=== PATIENT | male | born 1990 | race Caucasian/White ===

== ENCOUNTER 2017-10-15 15:23 | Emergency (ER) | payer OTHER ==
--- NOTE | 2017-10-15 15:30 | PDOC ---
Rapid Medical Evaluation Medical Evaluation: 10/15/17 15:28 The patient presents with a chief complaint of: Thinks he sprained his R ankle at work. Taking advil. Slightly swollen. Hurts to walk. Slipped and twisted ankle when going down stairs. Denies loc, head truama I have performed a brief in-person evaluation of this patient; Pertinent physical exam findings: TTP of the Lateral malleolus. PMS of RLE intact. I have ordered the following: R ankle x-ray The patient will proceed to the ED for further evaluation. Discharge Disposition - Diagnosis Ankle sprain - Discharge Dispostion Disposition: HOME Condition at time of disposition: Good - Referrals Referrals: Abad Gallo MD [Staff Physician] - - Patient Instructions Additional Instructions: follow with the orthopedist for follow up within 7-10 days elevate and apply ice every 2hrs for 20 minutes while awake for the next 2 days take motrin 600mg every 6hrs for pain as needed use the air cast splint while awake remove to sleep and bathe - Post Discharge Activity Work/School Note: Back to Work
[2017-10-15 15:31] VITALS: BP 130/90; PULSE 90; TEMP 98.6; BMI 39.1
--- NOTE | 2017-10-15 16:05 | PDOC ---
History of Present Illness - General Chief Complaint: Injury Stated Complaint: RT ANKLE PAIN Time Seen by Provider: 10/15/17 15:42 History Source: Patient Exam Limitations: No Limitations - History of Present Illness Initial Comments: 10/15/17 15:57 c/o twisted right ankle today . Past History - Past Medical History Allergies/Adverse Reactions: Allergies Allergy/AdvReac Type Severity Reaction Status Date / Time No Known Allergies Allergy Verified 10/15/17 15:31 COPD: No Other medical history: denies - Suicide/Smoking/Psychosocial Hx Smoking History: Never smoked Number of Cigarettes Smoked Daily: 5 Information on smoking cessation initiated: Yes 'Breaking Loose' booklet given: 10/15/17 Hx Alcohol Use: No Drug/Substance Use Hx: No Substance Use Type: None *Physical Exam - Vital Signs Last Vital Signs Temp Pulse Resp BP Pulse Ox 98.6 F 90 19 130/90 100 10/15/17 15:29 10/15/17 15:29 10/15/17 15:29 10/15/17 15:29 10/15/17 15:29 - Physical Exam General Appearance: Yes: Nourished, Appropriately Dressed HEENT: positive: EOMI, LAMINE Neck: positive: Supple Respiratory/Chest: positive: Lungs Clear, Normal Breath Sounds Musculoskeletal: positive: Normal Inspection Extremity: positive: Normal Capillary Refill, Swelling (right lateral ankle with swelling, no bony tenderness, nv intact ) Integumentary: positive: Normal Color, Dry, Warm Neurologic: positive: Fully Oriented, Alert, Normal Mood/Affect, Normal Response , Motor Strength 5/5 Procedures - Splinting Pre-Made Type: aircast Medical Decision Making - Medical Decision Making 10/15/17 16:06 cc: right ankle sprain 2 days ago twisted it after stepping on a piece of food at work pt has been walking on the ankle no history or ankle injury in the past xray done is negative for acute fracture pt refused crutches air cast placed and dc inst given pt understands to follow up with ortho in 7-10 days *DC/Admit/Observation/Transfer Diagnosis at time of Disposition: Ankle sprain Qualifiers: Encounter type: initial encounter Involved ligament of ankle: unspecified ligament Laterality: right Qualified Code(s): S93.401A - Sprain of unspecified ligament of right ankle, initial encounter - Discharge Dispostion Disposition: HOME Condition at time of disposition: Good - Referrals Referrals: Abad Gallo MD [Staff Physician] - - Patient Instructions Additional Instructions: follow with the orthopedist for follow up within 7-10 days elevate and apply ice every 2hrs for 20 minutes while awake for the next 2 days take motrin 600mg every 6hrs for pain as needed use the air cast splint while awake remove to sleep and bathe - Post Discharge Activity Forms/Work/School Notes: Back to Work
== END 2017-10-15 16:18 | disposition home or self-care (01) ==
LOC: JERFT 15:23
PROC: 2W3QX1Z Immobilization of Right Lower Leg using Splint (ICD-10-PCS; principal; 2017-10-15)
DX: S93.401A Sprain of unspecified ligament of right ankle, initial encounter (principal); W01.0XXA Fall on same level from slipping, tripping and stumbling without subsequent striking against object, initial encounter; X50.1XXA Overexertion from prolonged static or awkward postures, initial encounter; Y93.89 Activity, other specified; Y92.512 Supermarket, store or market as the place of occurrence of the external cause; Y99.0 Civilian activity done for income or pay
CPT/HCPCS: 73610-TC-RT; 73630-TC-RT; 99281-25